=== PATIENT | female | born 1990 | race Two or more races ===

== ENCOUNTER 2020-02-11 19:07 | Emergency (ER) | payer OTHER ==
[~2020-02-11] VITALS: Ht 162.6 cm; Wt 80.0 kg
[~2020-02-11 19:07] MED LIST: PREN1TAB54 PO
[2020-02-11 20:09] LABS: BILIRUBIN,URINE NEGATIVE (NEG); CLARITY,URINE CLEAR; NITRITE,URINE NEGATIVE (NEG); PH,URINE 6.5 (<5.0-8.0); PROTEIN,URINE NEGATIVE (NEG-TRACE); UROBILINOGEN,URINE 0.2 mg/dL (0.2 mg/dL)
[2020-02-11 20:12] LABS: COLOR,URINE STRAW
[2020-02-11 20:13] LABS: SQUAMOUS EPITHELIAL CELL,UR MANY /LPF
[2020-02-11 20:14] LABS: BACTERIA,URINE MODERATE /HPF (0-FEW)
[2020-02-11 20:15] LABS: RBC,URINE 0 /HPF (0-2)
[2020-02-11 20:36] LABS: BASO % 0 % (0-3); EOS # 0.1 x10^3/uL (0.0-0.7); EOS % 1 % (0-3); HEMATOCRIT 30.6 % (36.0-47.0); HEMOGLOBIN 10.7 g/dL (12.0-15.5); LYMPH # 1.6 x10^3/uL (1.0-4.8); LYMPH % 31 % (24-48); MEAN CORPUSCULAR HEMOGLOBIN 31 pg (25-35); MEAN CORPUSCULAR HGB CONC 35 g/dL (31-37); MEAN CORPUSCULAR VOLUME 87 fL (79-100); MONO # 0.3 x10^3/uL (0.0-1.1); MONO % 7 % (0-9); NEUT # 3.1 x10^3/uL (1.8-7.7); NEUT % 61 % (31-73); PLATELET COUNT 260 x10^3/uL (140-400); RED CELL DISTRIBUTION WIDTH 13.8 % (11.5-14.5); WHITE BLOOD COUNT 5.1 x10^3/uL (4.0-11.0)
[2020-02-11 20:53] VITALS: BP 112/59
--- NOTE | 2020-02-11 20:54 | PHYS DOC ---
Past Medical History Past Medical History: No Pertinent History Past Surgical History: Cholecystectomy Smoking Status: Never Smoker Alcohol Use: None General Adult EDM: Chief Complaint: MULTIPLE COMPLAINTS HPI: HPI: Patient is a 29 year old female who presents with sore throat, congestion, left lower abdominal pain. States she is doing 12 to 16 weeks , has not had any follow-ups with [facility]. States she is G4, P3, does have an appointment in February with her [facility]. Denies any vaginal bleeding, vaginal discharge, does report some burning with urination. States she is urinating normal though. Also reports her nasal congestion adding sore throat has been recurring for several months, states that she had been treated as short admission for this and August, had felt better for 1 to 2 days, and then returned back to her current feeling. States that she feels of care and appeared denies any fever. Denies cough. Denies shortness of breath. Denies edema. Denies nausea, vomiting, does report one episode of diarrhea today. Reports family member at home does have covid symptoms, Review of Systems: Review of Systems: Constitutional: Denies fever or chills. [] Eyes: Denies change in visual acuity. [] HENT: D reports nasal congestion, occasional sore throat [] Respiratory: Denies cough or shortness of breath. [] Cardiovascular: Denies chest pain or edema. [] GI: Denies abdominal pain, nausea, vomiting, bloody stools or diarrhea other than one episode of diarrhea earlier today [] : Denies dysuria. Does report some burning with her urination, does not report any frequency but denies any vaginal discharge denies any vaginal bleeding [] Musculoskeletal: Denies back pain or joint pain. [] Integument: Denies rash. [] Neurologic: Denies headache, focal weakness or sensory changes. [] Endocrine: Denies polyuria or polydipsia. [] Lymphatic: Denies swollen glands. [] Psychiatric: Denies depression or anxiety. [] Heart Score: Risk Factors: Risk Factors: DM, Current or recent (<one month) smoker, HTN, HLP, family history of CAD, obesity. Risk Scores: Score 0 - 3: 2.5% MACE over next 6 weeks - Discharge Home Score 4 - 6: 20.3% MACE over next 6 weeks - Admit for Clinical Observation Score 7 - 10: 72.7% MACE over next 6 weeks - Early Invasive Strategies Allergies: Allergies: Allergies Coded Allergies Type Severity Reaction Last Updated Verified No Known Drug Allergies 08/11/13 No Physical Exam: PE: Constitutional: Well developed, well nourished, no acute distress, non-toxic appearance. [] HENT: Normocephalic, atraumatic, bilateral external ears normal, oropharynx moist, no oral exudates, nose normal. Tonsils 2+, no erythema, no purulence noted [] Eyes: PERRLA, EOMI, conjunctiva normal, no discharge. [] Neck: Normal range of motion, no tenderness, supple, no stridor. [] Cardiovascular:Heart rate regular rhythm, no murmur [] Lungs & Thorax: Bilateral breath sounds clear to auscultation [] Abdomen: Bowel sounds normal, soft, no tenderness, no masses, no pulsatile masses. [] Skin: Warm, dry, no erythema, no rash. [] Back: No tenderness, no CVA tenderness. [] Extremities: No tenderness, no cyanosis, no clubbing, ROM intact, no edema. [] Neurologic: Alert and oriented X 3, normal motor function, normal sensory function, no focal deficits noted. [] Psychologic: Affect normal, judgement normal, mood normal. [] Current Patient Data: Labs: Laboratory Tests Test 02/11/20 19:20 02/11/20 20:20 Urine Collection Type Unknown Urine Color Straw Urine Clarity Clear Urine pH 6.5 (<5.0-8.0) Urine Specific Randolph <=1.005 (1.000-1.030) Urine Protein Negative mg/dL (NEG-TRACE) Urine Glucose (UA) Negative mg/dL (NEG) Urine Ketones (Stick) Negative mg/dL (NEG) Urine Blood Negative (NEG) Urine Nitrite Negative (NEG) Urine Bilirubin Negative (NEG) Urine Urobilinogen Dipstick 0.2 mg/dL (0.2 mg/dL) Urine Leukocyte Esterase Trace (NEG) Urine RBC 0 /HPF (0-2) Urine WBC 1-4 /HPF (0-4) Urine Squamous Epithelial Cells Many /LPF Urine Bacteria Moderate /HPF (0-FEW) White Blood Count 5.1 x10^3/uL (4.0-11.0) Red Blood Count 3.50 x10^6/uL (3.50-5.40) Hemoglobin 10.7 g/dL (12.0-15.5) L Hematocrit 30.6 % (36.0-47.0) L Mean Corpuscular Volume 87 fL (79-100) Mean Corpuscular Hemoglobin 31 pg (25-35) Mean Corpuscular Hemoglobin Concent 35 g/dL (31-37) Red Cell Distribution Width 13.8 % (11.5-14.5) Platelet Count 260 x10^3/uL (140-400) Neutrophils (%) (Auto) 61 % (31-73) Lymphocytes (%) (Auto) 31 % (24-48) Monocytes (%) (Auto) 7 % (0-9) Eosinophils (%) (Auto) 1 % (0-3) Basophils (%) (Auto) 0 % (0-3) Neutrophils # (Auto) 3.1 x10^3/uL (1.8-7.7) Lymphocytes # (Auto) 1.6 x10^3/uL (1.0-4.8) Monocytes # (Auto) 0.3 x10^3/uL (0.0-1.1) Eosinophils # (Auto) 0.1 x10^3/uL (0.0-0.7) Basophils # (Auto) 0.0 x10^3/uL (0.0-0.2) Laboratory Tests 02/11/20 20:20 Vital Signs: Vital Signs Date Time Temp Pulse Resp B/P (MAP) Pulse Ox O2 Delivery O2 Flow Rate FiO2 02/11/20 19:22 98.3 88 16 114/66 (82) 97 Room Air 98.3 EKG: EKG: [] Radiology/Procedures: Radiology/Procedures: []Comparisons: None FINDINGS: Within the uterus there is a single live intrauterine gestation. heart rate measured at 155 bpm. measurements as follows: BPD: 9.5 cm corresponding to 14 weeks 2 days Head circumference: 7.5 cm corresponding to 14 weeks 0 days Abdominal circumference: 1.6 cm corresponding to 14 weeks 6 days Femur length: 1.6 cm corresponding to 14 weeks 5 days No free fluid. IMPRESSION: Single live intrauterine gestation measuring 14 weeks 2 days by current ultrasound. Correlate with LMP. Electronically signed by: Klaudia Dash MD (02/11/2020 9:15 PM) [id number] DICTATED and SIGNED BY: KLAUDIA DASH MD DATE: 02/11/202114 Course & Med Decision Making: Course & Med Decision Making Pertinent Labs and Imaging studies reviewed. (See chart for details) []Blood type AB Positive Given patient discomfort worsening over the past day and no prior imaging to confirm status, will perform ultrasound for placement and evaluation of discomfort Will evaluate labs and evaluate further as needed. no noted signs of infection to oropharynx, albeit tonsils are swollen which she reports is normal and she has been told by ENT she needs to have them removed, but has not been able to due to and COVID. Discussed results with patient, with normal ultrasound and labs. Consideration for patient having COVID due to vague symptoms and spouse with symptoms of fever and pending recent test. patient has follow up with OBGYN on 03/05 Patient to take tylenol for discomfort or fever. Dragon Disclaimer: Dragon Disclaimer: This electronic medical record was generated, in whole or in part, using a voice recognition dictation system. Departure Departure Impression: Primary Impression: related abdominal pain of lower quadrant, antepartum Additional Impression: Congestion of nasal sinus Disposition: HOME, SELF-CARE Condition: GOOD Referrals: NO PCP (PCP) Patient Instructions: Abdominal Pain During , [id number], Fluticasone nasal solution Additional Instructions: Rich hablemos puede pamela paracetamol para dolor y fiebre. Sigue con dunn chris obstetria en . Felicia agua y ser hidritado. Descansa Es posible que tenga COVID, la prueba llegara en unos roman. Si queda positivo con COVID, avisar dunn OBGYN y continuear a quedar aislado de otro gente para 14 roman. Considerar usar yazmin espray para la nariz, se llama "FLONASE". rich explica, pone en la nariz y indica para la otra lado. no inhalarlo, solo henny el spray para ir donde vaya. puede usar eso 1 espray dos veces al kitty o 2 espray yazmin vez al kitty. As we discussed, take tylenol for pain and fever. Follow-up with your [facility] on March 05. Make sure you are drinking water and staying hydrated. Rest. It is possible you have COVID, your test results will come in a couple days. If you end up positive, make sure you inform your [facility], and continue to isolate yourself from others. Consider using a nasal spray called Flonase, like we discussed, you for than 1 nose in a month for the other eye, do not inhale, let the spray go work because. You may use 1 spray twice a day or 2 sprays once a day. Justicifation of Admission Dx: Justifications for Admission: Justification of Admission Dx: N/A MARISSA HELLER APRN Feb 11, 2020 20:54
[2020-02-11 21:09] LABS: CALCIUM 8.6 mg/dL (8.5-10.1); CREATININE 0.7 mg/dL (0.6-1.0); GFR 98.3; POTASSIUM 3.7 mmol/L (3.5-5.1)
--- NOTE | 2020-02-11 21:18 | RAD ---
Exam: Ultrasound OB greater than 14 weeks Indication: Left lower quadrant abdominal pain Technique: Real-time grayscale and color Doppler images of the pelvis were obtained by the department commercial sales director. Comparisons: None FINDINGS: Within the uterus there is a single live intrauterine gestation. heart rate measured at 155 bpm. measurements as follows: BPD: 9.5 cm corresponding to 14 weeks 2 days Head circumference: 7.5 cm corresponding to 14 weeks 0 days Abdominal circumference: 1.6 cm corresponding to 14 weeks 6 days Femur length: 1.6 cm corresponding to 14 weeks 5 days No free fluid. IMPRESSION: Single live intrauterine gestation measuring 14 weeks 2 days by current ultrasound. Correlate with LMP. Electronically signed by: Klaudia Peñaloza MD (02/11/2020 9:15 PM) [id number]
== END 2020-02-11 21:53 | disposition home or self-care (01) ==
LOC: ER 19:07
DX: O98.511 Other viral diseases complicating pregnancy, first trimester (principal); U07.1 COVID-19; R09.81 Nasal congestion; R10.32 Left lower quadrant pain; Z90.49 Acquired absence of other specified parts of digestive tract; Z3A.14 14 weeks gestation of pregnancy
CPT/HCPCS: 36415; 76801; 80048; 81001; 84702; 85025; 87086; 99284; U0003

== ENCOUNTER 2020-05-24 00:13 | Emergency (ER) | payer OTHER ==
[~2020-05-24] VITALS: Ht 157.5 cm; Wt 78.6 kg
[2020-05-24 00:22] VITALS: BP 130/72
--- NOTE | 2020-05-24 00:54 | PHYS DOC ---
Past Medical History Past Medical History: No Pertinent History Past Surgical History: No Surgical History, Cholecystectomy Smoking Status: Never Smoker Alcohol Use: None General Adult EDM: Chief Complaint: INSECT BITE HPI: HPI: Patient is a 29 year old F who presents with "insect bites" to her right shoulder and neck that she noticed last Tuesday. She reports that she did not see an insect bite her. She states originally they looked like red dots that now have a black head. She states that the neck lesion started burning and itching today. She has been putting cortisone cream on them without any relief. She also took benadryl today without relief of her itching. She denies any fever chills, headache, or body aches. Patient is 28 weeks . Review of Systems: Review of Systems: Constitutional: Denies fever or chills Eyes: Denies redness or eye pain HENT: Denies nasal congestion or sore throat Respiratory: Denies cough or shortness of breath Cardiovascular: Denies chest pain or palpitations GI: Denies abdominal pain, nausea, or vomiting : Denies dysuria or hematuria Musculoskeletal: Denies back pain or joint pain Integument: Denies rash or skin lesions Neurologic: Denies headache or sensory changes Complete systems were reviewed and found to be within normal limits, except as documented in this note. Current Medications: Current Medications Medications (Trade) Dose Ordered Sig/Tony Start Time Stop Time Status Last Admin Dose Admin Dexamethasone (Decadron) 10 mg 1X ONCE 05/24/20 01:00 05/24/20 01:01 05/24/20 00:49 10 MG Allergies: Allergies: Allergies Coded Allergies Type Severity Reaction Last Updated Verified No Known Drug Allergies 08/11/13 No Physical Exam: PE: Constitutional: Well developed, well nourished HENT: Normocephalic, atraumatic Eyes: Conjunctiva normal, no discharge Neck: Normal range of motion, swollen anterior cervical lymph node on right that is painful to palpation Lungs & Thorax: No respiratory distress, equal chest rise and fall Abdomen: Soft, no tenderness Skin: Warm, dry, 3 small mildly erythematous papules with pinpoint eschar to base of lateral right neck that are tender to palpation. 2 small mildly erythema tous papules on her R shoulder that are nontender to palpation. Back: No tenderness, no CVA tenderness Extremities: No tenderness, no edema Neurologic: Alert and oriented X 3, no focal deficits noted Psychologic: Affect normal, judgment normal Current Patient Data: Vital Signs: Vital Signs Date Time Temp Pulse Resp B/P (MAP) Pulse Ox O2 Delivery O2 Flow Rate FiO2 05/24/20 00:22 97.9 78 16 130/72 (91) 97 Room Air 97.9 EKG: EKG: [] Radiology/Procedures: Radiology/Procedures: [] Course & Med Decision Making: Course & Med Decision Making Patient is a 29 yo F at 28 weeks gestation who presented for nonspecific skin rash that began last Tuesday. Patient was given dexamethasone and discharged with wound care instructions. Patient stable for discharge with outpatient follow-up with PCP. Discussed findings and plan with patient, who acknowledges understanding and agreement. [] Bi Disclaimer: Bi Disclaimer: This electronic medical record was generated, in whole or in part, using a voice recognition dictation system. Departure Departure Impression: Primary Impression: Rash and nonspecific skin eruption Disposition: 01 DC HOME SELF CARE/HOMELESS Condition: STABLE Referrals: NO PCP (PCP) Patient Instructions: Rash, [id number] Additional Instructions: Do not soak your wound. You may shower. Clean wound daily with soap and water. Change dressing 2 times daily. Use over the counter antibiotic ointment with each dressing change. May use [id number] Benadryl as needed for any further itching. DAYLIN HERRERA DO May 24, 2020 00:54
[2020-05-24] MEDS ORDERED: DEXAMETHASONE 4 MG TABLET PO ONE (01:00)
[2020-05-24] MEDS ORDERED: NEOMY/BACITR/POLYMYXIN OINT PACKET. TP ONE (01:30)
== END 2020-05-24 01:04 | disposition home or self-care (01) ==
LOC: ER 00:13
DX: O26.893 Other specified pregnancy related conditions, third trimester (principal); R21 Rash and other nonspecific skin eruption; L53.9 Erythematous condition, unspecified; L29.9 Pruritus, unspecified; R20.8 Other disturbances of skin sensation; Z90.49 Acquired absence of other specified parts of digestive tract; Z3A.28 28 weeks gestation of pregnancy
CPT/HCPCS: 99283